=== PATIENT | male | born 1995 | race Caucasian/White ===

== ENCOUNTER 2018-06-14 22:41 | Emergency (ER) | payer SELFPAY ==
[~2018-06-14] VITALS: Ht 175.3 cm; Wt 75.0 kg
[2018-06-14 22:48] VITALS: Ht 175.3 cm; Wt 75.0 kg
[2018-06-14] MEDS ORDERED: SOD CHLORIDE 0.9% 1,000 ML IV STA (22:55)
[2018-06-14] MEDS ORDERED: morphine 4 MG/ML VIAL IV STA (22:55)
[2018-06-14] MEDS ORDERED: ONDANSETRON 4 MG INJ IV STA (22:55)
[2018-06-14] MEDS ORDERED: PROPOFOL 200 MG INJ IV ONE (23:00)
[2018-06-14 23:59] VITALS: BP 125/78; PULSE 70; RESP 16
--- NOTE | 2018-06-15 00:01 | ERD ---
ER Documentation Chief Complaint Chief Complaint LEFT SHOULDER DISLOCATION, HISTORY OF PREVIOUS OCCURRANCE HPI This is a 22-year-old male presents the emergency room for evaluation of left shoulder pain. The patient does have a history of a left shoulder dislocations and states that he feels that he dislocated his left shoulder while stretching today. The patient denies any direct trauma to the area denies any trauma or pain anywhere else in his body. He denies any numbness or tingling in his shoulder or extremities. ROS All systems reviewed and are negative except as per history of present illness. PMhx/Soc Medical and Surgical Hx: pt denies Medical Hx, pt denies Surgical Hx Hx Alcohol Use: Yes Hx Substance Use: Yes (MARAJUANA) Hx Tobacco Use: Yes Smoking Status: Light tobacco smoker Physical Exam Vitals Vital Signs Date Temp Pulse Resp B/P (MAP) Pulse Ox O2 O2 Flow FiO2 Time Delivery Rate 06/14/18 100 3.0 23:15 06/14/18 99.8 96 18 97 22:48 Physical Exam INITIAL VITAL SIGNS: Reviewed by me GENERAL: The patient is well developed and appropriate for usual state of health in no apparent distress HEENT: Pupils equal, round, and reactive to light. EOMI. There is no scleral icterus. NECK: C-spine is soft and supple, there is no meningismus. There is no cervical lymphadenopathy. LUNGS: Clear to auscultation bilaterally. There are no rales, wheezes or rhon chi. HEART: Regular rate and rhythm, no murmurs, clicks, rubs or gallops. ABDOMEN: Soft, non-tender, non-distended. There are bowel sounds in all four quadrants. No rebound or guarding. EXTREMITIES: There is visible deformity noted at the left glenohumeral joint NEUROLOGICAL: The patient moves all four extremities with 5/5 strength. Cranial nerves II - XII are intact. Normal gait. Alert and oriented SKIN: There is no apparent rash or petechiae. HEME/LYMPHATIC: There is no evidence of excessive bruising or lymphedema. PSYCHIATRIC: The patient does not appear anxious or depressed. Results 24 hrs Current Medications Medications Dose Sig/Zenobia Start Time Status Last (Trade) Ordered Route PRN Stop Time Admin Dose Reason Admin Morphine 4 mg ONCE STAT 06/14/18 DC 06/14/18 Sulfate IV 22:55 23:09 (morphine) 06/14/18 22:57 Ondansetron 4 mg ONCE STAT 06/14/18 DC 06/14/18 HCl (Zofran IV 22:55 23:09 Inj) 06/14/18 22:57 Sodium 1,000 ml @ Q1H STAT 06/14/18 DC 06/14/18 Chloride 1,000 mls/hr IV 22:55 23:10 06/14/18 23:54 Propofol 80 mg ONCE ONCE 06/14/18 DC (Diprivan) IV 23:00 06/14/18 23:01 Procedures/MDM X-ray Shoulder 3V Interpreted by me: Bones: [No fracture] Joints: Anterior-inferior glenohumeral dislocation Foreign body: [None] X-ray Shoulder 3V Interpreted by me: #2 Bones: [No fracture] Joints: [No dislocation] Foreign body: [None] Procedural Sedation: Pre-assessment performed. See preceding complete history and physical for details. Time out performed. See sedation documentation for details. Medication(s): 80 mg propofol Complications: No hypoxic or apneic events Recovered without incident. Greater than 15 minutes of face to face time included in sedation and recovery. Reduction by me: Anesthesia: 80 mg propofol Location: Left glenohumeral joint Technique: Gentle traction and manipulation Results: Sikh of normal anatomic positioning Neurovascularly intact post procedure. [Splint Assessment: Neurovascularly intact post splint placement with good fit.] This 22-year-old male presents to the ER for evaluation of left shoulder pain. On my exam the patient had visible deformity of the left shoulder. X-rays were obtained and confirmed inferior shoulder dislocation. The patient was placed on a monitor. He was given 80 mg of propofol and was able to reduce the shoulder into anatomical position. The patient denies any numbness or tingling over the shoulder. He does have sensation over the axillary nerve distribution. He is neurovascularly intact in the left hand. The patient tolerated procedure well will be discharged home with a shoulder immobilizer, Motrin for pain. Departure Diagnosis: Primary Impression: Dislocation of left shoulder joint Condition: Stable CATHRYNJOSEFIORELLA LADD Jun 15, 2018 00:01
[2018-06-15] MEDS ORDERED: IBUP-1544 PO (00:02)
== END 2018-06-15 00:11 | disposition home or self-care (01) ==
LOC: E/R 22:41
DX: S43.005A Unspecified dislocation of left shoulder joint, initial encounter (principal); F17.210 Nicotine dependence, cigarettes, uncomplicated; X58.XXXA Exposure to other specified factors, initial encounter; Y92.9 Unspecified place or not applicable
CPT/HCPCS: 23650; 73030; 94770; 96374; 96375; 99285; J2270; J2405; J7030